=== PATIENT | male | born 1955 | race Caucasian/White ===

== ENCOUNTER → 2020-04-18 | Day surgery (SDC) | payer MEDICAID ==
[~2020-04-18] VITALS: Ht 180.3 cm; Wt 86.2 kg
[~2020-04-18] MED LIST: ACCU-CHEK COMFORT CURVE STRIP VI ONE; APIX5TAB PO; ATEN-60 PO; BUPIVACAINE 0.25% INJ 50ML VIAL ONE; CHOL100029 PO; ETOMIDATE (2MG/ML) 20ML VIAL IV ONE; GLIP10TA9 PO; GLYCOPYRROLATE 0.2 MG/ML 1ML VIAL ONE; HEPARIN SODIUM (PORCINE) 5000 UNITS/ML 1ML VIAL ONE; HYDROmorphone HCL 2 MG/ML VL IV PRN; InsuLIN REG 1unit/0.01ml Soln (100units/ml) IV ONE; InsuLIN REG 1unit/0.01ml Soln (100units/ml) ONE; LIDOCAINE 1% (LOCAL ANESTH.) PF 5ml SDV ONE; LIDOCAINE W/ EPINEPHRINE 1 % INJ 30ML ONE; METF-372 PO; METOCLOPRAMIDE HCL 5MG/ml INJ 2ml VIAL ONE; MIDAZOLAM HCL 1MG/1ML-2 ML VIAL ONE; NALOXONE HCL 0.4 MG/ML VIAL IV PRN; NEOSTIGMINE 1 MG/ML INJ (10mg/10ML VIAL) ONE; ONDANSETRON HCL 4 MG/2 ML VIAL IV PRN; PROMETHAZINE HCL 25 MG/ML 1ML IV ONE; PROMETHAZINE HCL 25 MG/ML 1ML ONE; ROCURONIUM 10MG/ML 10ML VIAL IV ONE; SUCCINYLCHOLINE CHLORIDE 20 MG/ML 10ML VIAL IV ONE; VITA400T4 PO; ceFAZolin 1GM/50ML 100 ML IV ONE; ePHEDrine SULFATE 50 MG/ML AMP IV ONE; fentaNYL CITRATE 100 MCG/2 ML VL ONE
[2020-04-18] MEDS: HYDROmorphone HCL 2 MG/ML VL IV PRN ×4 (09:55→10:50)
[2020-04-18 13:10] VITALS: BP 131/61
== END | disposition home or self-care (01) ==
LOC: SUR 05:38
PROVIDERS: ATTEND Surgery
DX: K80.10 Calculus of gallbladder with chronic cholecystitis without obstruction (principal); I26.99 Other pulmonary embolism without acute cor pulmonale; I48.91 Unspecified atrial fibrillation; G47.33 Obstructive sleep apnea (adult) (pediatric); E66.01 Morbid (severe) obesity due to excess calories; E11.22 Type 2 diabetes mellitus with diabetic chronic kidney disease; I12.9 Hypertensive chronic kidney disease with stage 1 through stage 4 chronic kidney disease, or unspecified chronic kidney disease; N18.9 Chronic kidney disease, unspecified; Z86.718 Personal history of other venous thrombosis and embolism; Z79.84 Long term (current) use of oral hypoglycemic drugs; Z79.899 Other long term (current) drug therapy; Z11.59 Encounter for screening for other viral diseases
CPT/HCPCS: 47562; 82962; 86850; 86900; 86901; J0330; J0690; J1170; J1644; J1815; J2001; J2250; J2405; J2550; J2765; J3010; J3490; U0003